=== PATIENT | male | born 1945 | race Caucasian/White ===

== ENCOUNTER → 2016-08-07 | Outpatient (CLI) | payer OTHER ==
--- NOTE | 2016-08-07 15:07 | CT ---
STUDY: CT PARANASAL SINUSES WITHOUT CONTRAST HISTORY: Sinusitis. Comparison: None. Technique: Multiple axial images of the paranasal sinuses were obtained without the administration o f IV contrast. Coronal and sagittal reformats were performed and reviewed. Automated exposure contr ol (AEC) was utilized to adjust the MA and/or kV. Findings: Axial images: There is mild circumferential mucosal thickening in the right maxillary sinus. There i s a small amount mucosal thickening around the sphenoid ethmoidal recess on the left. There is mild mucosal thickening in the frontal recess on the right. Ethmoid air cells and frontal sinuses are oth erwise unremarkable. No air-fluid levels are identified. There is no evidence of osteoneogenesis. Th e retro antral fat is clear. The nasal cavity is within normal limits. There is nasal septal deviati on to the right. The nasal bone is intact. Reformatted images: The ethmoid roofs are symmetric. The lamina papyracea is intact bilaterally. The re is no evidence of orbital blowout. The ostiomeatal unit on the left is predominantly clear. There is mucosal thickening around the ostiomeatal unit on the right. No signficant odontogenic abnormali ty is identified. Mastoid air cells and middle ear cavities are predominately clear. IMPRESSION: 1. Mild mucosal thickening in the paranasal sinuses as described above. No evidence of acute sinusi tis at this time. 2. Normal appearing mastoid air cells and middle ear cavities bilaterally. Reported By:
== END ==
LOC: RAD 12:45
PROVIDERS: ATTEND Allergy & Immunology
DX: J32.0 Chronic maxillary sinusitis (principal); J01.80 Other acute sinusitis
CPT/HCPCS: 70486